=== PATIENT | male | born 1975 | race Hispanic/Latino ===

== ENCOUNTER 2017-05-17 19:50 | Emergency (ER) | payer OTHER ==
[~2017-05-17] VITALS: Ht 175.3 cm; Wt 81.7 kg
[2017-05-17] MEDS ORDERED: NORCO 5-325 TA1 EACH PO (20:39)
== END 2017-05-17 20:57 | disposition home or self-care (01) ==
LOC: ED 19:50
DX: S43.101A Unspecified dislocation of right acromioclavicular joint, initial encounter (principal); V80.010A Animal-rider injured by fall from or being thrown from horse in noncollision accident, initial encounter
CPT/HCPCS: 73030; 99283